=== PATIENT | female | born 1960 | race African-American/Black ===

== ENCOUNTER 2017-10-08 18:51 | Inpatient (IN) | payer OTHER ==
[2017-10-08 19:05] VITALS: BMI 23.0
--- NOTE | 2017-10-08 21:07 | HP ---
Admission [facility] - [facility] Chief Complaint: SEEKING REHAB SERVICES FOR CONT USE OF HEROIN, THC, TANMAY. Allergies/Adverse Reactions: Allergies Allergy/AdvReac Type Severity Reaction Status Date / Time haloperidol [From Haldol] Allergy Severe Swelling Verified 10/08/17 20:27 History of Present Illness: 57 Y.O FEMALE WITH LONG HX/O OPIOID DEPENDENCE HERE FOR REHAB SERVICES. THIS IS CLIENTS FIRST TIME HERE. SHE IS PRESENTLY ON METHADONE 135 MG LDM TODAY. 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 CLIENT IS A POOR HISTORIAN Exam Limitations: No Limitations - Ebola screening Have you traveled outside of the country in the last 21 days: No Have you had contact with anyone from an Ebola affected area: No Have you been sick,other than usual withdrawal symptoms: No Do you have a fever: No - Review of Systems Constitutional: No Symptoms Reported EENT: reports: Dental Problems (MISSING TEETH) Respiratory: reports: No Symptoms reported Cardiac: reports: No Symptoms Reported GI: reports: No Symptoms Reported : reports: No Symptoms Reported Musculoskeletal: reports: No Symptoms Reported Integumentary: reports: No Symptoms Reported Neuro: reports: No Symptoms reported Endocrine: reports: No Symptoms Reported Hematology: reports: No Symptoms Reported Psychiatric: reports: Anxious, Depressed Other Systems: Reviewed and Negative Patient History - Patient Medical History Hx Anemia: No Hx Asthma: No Hx Chronic Obstructive Pulmonary Disease (COPD): No Hx Cancer: No Hx Cardiac Disorders: No Hx Congestive Heart Failure: No Hx Hypertension: Yes (ON MEDS- NAME UNKNOWN) Hx Hypercholesterolemia: No Hx Pacemaker: No HX Cerebrovascular Accident: No Hx Seizures: No Hx Dementia: No Hx Diabetes: No Hx Gastrointestinal Disorders: No Hx Liver Disease: No Hx Genitourinary Disorders: No Hx Sexually Transmitted Disorders: No Hx Renal Disease (ESRD): No Hx Thyroid Disease: No Hx Human Immunodeficiency Virus (HIV): No Hx Hepatitis C: No Hx Depression: Yes (DENIES SI/HI) Hx Suicide Attempt: Yes (PILLS OVERDOSE 2YRS AGO) Hx Bipolar Disorder: No Hx Schizophrenia: Yes Other Medical History: PT DENIES - Patient Surgical History Past Surgical History: Yes Hx Neurologic Surgery: No Hx Cataract Extraction: No Hx Cardiac Surgery: No Hx Lung Surgery: No Hx Breast Surgery: No Hx Breast Biopsy: No Hx Abdominal Surgery: Yes (HERNIA REPAIR AT AGE 8) Hx Appendectomy: No Hx Cholecystectomy: No Hx Genitourinary Surgery: No Hx Section: No Hx Orthopedic Surgery: No Anesthesia Reaction: No - PPD History Previous Implant?: Yes Documented Results: Positive w/o proof Implanted On Prior [facility] Admission?: No PPD to be Administered?: No - Reproductive History Patient is a Female of Child Bearing Age (11 -55 yrs old): No Patient : No ([facility] [place] - Smoking Cessation Smoking history: Current every day smoker Have you smoked in the past 12 months: Yes Aproximately how many cigarettes per day: 20 Hx Chewing Tobacco Use: No Initiated information on smoking cessation: Yes 'Breaking Loose' booklet given: 10/08/17 - Substance & Tx. History Hx Alcohol Use: No Hx Substance Use: Yes Substance Use Type: Cocaine, Heroin, Marijuana, Opiates (METHADONE) Hx Substance Use Treatment: No (DOES NOT RECALL) - Substances Abused Heroin Route: Inhalation Frequency: Daily Amount used: 1BAG Age of first use: 19 Date of Last Use: 10/07/17 Crack Route: Smoking Frequency: Daily Amount used: 1BAG Age of first use: 19 Date of Last Use: 10/07/17 Family Disease History - Family Disease History Family History: Unable to Obtain Admission Physical Exam S - Vital Signs Vital Signs: Vital Signs - 24 hr 10/08/17 18:58 Temperature 97.6 F Pulse Rate 58 L Respiratory 16 Rate Blood Pressure 150/84 - Physical General Appearance: Yes: Thin, Irritable HEENTM: Yes: EOMI, Normocephalic, KRISTINA, Pharynx Normal, Other (POOR DENTITION, MISSING TEETH) Respiratory: Yes: Chest Non-Tender, Lungs Clear, Normal Breath Sounds, No Respiratory Distress, No Accessory Muscle Use Neck: Yes: No masses,lesions,Nodules, Supple, Trachea in good position Breast: Yes: Within Normal Limits Cardiology: Yes: Regular Rhythm, Regular Rate, S1, S2 Abdominal: Yes: Normal Bowel Sounds, Non Tender, Soft Genitourinary: Yes: Within Normal Limits Back: Yes: Normal Inspection Musculoskeletal: Yes: full range of Motion, Gait Steady Extremities: Yes: Normal Capillary Refill, Normal Range of Motion, Non-Tender, Tremors Neurological: Yes: coil connector II-XII NML intact, Fully Oriented, Alert, Motor Strength 5/5 Integumentary: Yes: Normal Color, Dry, Warm Lymphatic: Yes: Within Normal Limits - Diagnostic (1) Uncomplicated opioid dependence Current Visit: Yes Status: Chronic (2) Cannabis dependence, uncomplicated Current Visit: Yes Status: Chronic (3) Cocaine dependence, uncomplicated Current Visit: Yes Status: Chronic (4) Sedative, hypnotic or anxiolytic dependence, uncomplicated Current Visit: Yes Status: Chronic (5) Nicotine dependence Current Visit: Yes Status: Acute (6) Opioid dependence on agonist therapy Current Visit: Yes Status: Acute (7) HTN (hypertension) Current Visit: Yes Status: Chronic Qualifiers: Hypertension type: unspecified Qualified Code(s): I10 - Essential (primary ) hypertension Cleared for Admission [facility] - Detox or Rehab Detox Regimen/Protocol: Not Applicable Claeared for Rehab Admission: Yes [facility] Breath Alcohol Content Breath Alcohol Content: 0 Urine Pregancy Test - Result Urine Test Results: Negative- NO Line Present Urine Drug Screen - Results Drug Screen Negative: No Urine Drug Screen Results: THC-Marijuana, TANMAY-Cocaine, OPI-Opiates, MTD- Methadone Inpatient Rehab Admission - Initial Determination Are CD services needed?: Yes Free of communicable disease: Yes Not in need of hospitalization: Yes - Rehab Admission Criteria Previous failed treatment: Yes Poor recovery environment: Yes Comorbidities: Yes Lacks judgement: Yes Patient is meeting Inpatient Rehab admission criteria:: Yes
[2017-10-08] MEDS ORDERED: MAGNESIUM HYDROX 2400MG/30ML ORAL SUSPENSION 30 ML CUP PO PRN (21:14)
[2017-10-08] MEDS ORDERED: MENTHOL/PHENOL 1 EACH UD MM PRN (21:14)
[2017-10-08] MEDS ORDERED: NICOTINE POLACRILEX 4 MG GUM BC PRN (21:14)
[2017-10-08] MEDS ORDERED: ACETAMINOPHEN 325 MG TABLET (FP) PO PRN (21:14)
[2017-10-08] MEDS ORDERED: IBUPROFEN 400 MG TABLET (FP) PO PRN (21:14)
[2017-10-08] MEDS ORDERED: guaiFENesin/D-METHORPHAN HB 10 ML UNIT-DOSE CUPS PO PRN (21:14)
[2017-10-08] MEDS ORDERED: P-EPHED 60MG/TRIPROLIDI 2.5MG TABLET PO PRN (21:14)
[2017-10-08] MEDS ORDERED: MAGNESIUM CITRATE 300 ML BOTTLE PO PRN (21:14)
[2017-10-08] MEDS ORDERED: MAG HYDROX/AL HYDROX/SIMETH 30 ML UNIT-DOSE CUP PO PRN (21:14)
[2017-10-08] MEDS ORDERED: LOPERAMIDE HCL 2 MG CAPSULE PO PRN (21:14)
[2017-10-08] MEDS ORDERED: hydrOXYzine PAMOATE 50 MG CAPSULE (FP) PO PRN (21:14)
[2017-10-08] MEDS: THIAMINE HCL 100 MG TABLET (FP) PO SCH (23:10)
[2017-10-08 23:32] LABS: URINE APPEARANCE SLCLOUDY; URINE BILIRUBIN NEGATIVE (NEGATIVE); URINE BLOOD NEGATIVE (NEGATIVE); URINE COLOR DKYELLOW; URINE GLUCOSE (UA) NEGATIVE (NEGATIVE); URINE KETONE TRACE (NEGATIVE); URINE LEUK ESTERASE 1+ (NEGATIVE); URINE NITRITE NEGATIVE (NEGATIVE); URINE PROTEIN NEGATIVE (NEGATIVE)
[2017-10-08 23:34] LABS: EPI CELLS RARE /HPF (FEW); URINE HYALINE CAST 3 /lpf; URINE MUCUS MANY
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
[2017-10-09] MEDS ORDERED: METHADONE HCL 10 MG TABLET PO ONE (10:21)
[2017-10-09] MEDS ORDERED: METHADONE 120 MG, METHADONE 10 MG, METHADONE 5 MG PO ONE (10:33)
[2017-10-09] MEDS: PRENATAL VITAMINS W/ FOLIC ACID TABLET (FP) PO SCH (10:33)
[2017-10-09] MEDS: NICOTINE 21 MG/24 HOURS TOPICAL PATCH TD SCH (10:38)
[2017-10-09] MEDS ORDERED: METHADONE HCL 40 MG DISPERSABLE TABLET ONE (11:32)
[2017-10-09] MEDS ORDERED: METHADONE HCL 5 MG TABLET ONE (11:32)
[2017-10-09] MEDS ORDERED: METHADONE HCL 10 MG TABLET ONE (11:32)
[2017-10-09] MEDS: QUEtiapine FUMARATE 100 MG TABLET (FP) PO SCH ×2 (11:37→21:38)
[2017-10-09] MEDS: DIVALPROEX SODIUM 500 MG TABLET E.C. PO SCH (21:38)
[2017-10-09] MEDS: THIAMINE HCL 100 MG TABLET (FP) PO SCH (21:38)
[2017-10-10] MEDS ORDERED: METHADONE HCL 10 MG TABLET ONE (05:56)
[2017-10-10] MEDS ORDERED: METHADONE HCL 5 MG TABLET ONE (05:57)
[2017-10-10] MEDS ORDERED: METHADONE HCL 40 MG DISPERSABLE TABLET ONE (05:57)
[2017-10-10] MEDS ORDERED: METHADONE HCL 40 MG DISPERSABLE TABLET PO SCH (06:00)
[2017-10-10] MEDS: METHADONE 120 MG, METHADONE 10 MG, METHADONE 5 MG PO SCH (06:46)
[2017-10-10] MEDS: PRENATAL VITAMINS W/ FOLIC ACID TABLET (FP) PO SCH (10:17)
[2017-10-10] MEDS: QUEtiapine FUMARATE 100 MG TABLET (FP) PO SCH ×2 (10:17→21:30)
[2017-10-10] MEDS: NICOTINE 21 MG/24 HOURS TOPICAL PATCH TD SCH (10:17)
[2017-10-10] MEDS: THIAMINE HCL 100 MG TABLET (FP) PO SCH (21:30)
[2017-10-10] MEDS: DIVALPROEX SODIUM 500 MG TABLET E.C. PO SCH (21:31)
[2017-10-11] MEDS ORDERED: METHADONE HCL 5 MG TABLET ONE (03:12)
[2017-10-11] MEDS ORDERED: METHADONE HCL 10 MG TABLET ONE (03:12)
[2017-10-11] MEDS ORDERED: METHADONE HCL 40 MG DISPERSABLE TABLET ONE (03:12)
[2017-10-11] MEDS: METHADONE 120 MG, METHADONE 10 MG, METHADONE 5 MG PO SCH (06:19)
[2017-10-11] MEDS: PRENATAL VITAMINS W/ FOLIC ACID TABLET (FP) PO SCH (09:50)
[2017-10-11] MEDS: QUEtiapine FUMARATE 200 MG TABLET PO SCH ×2 (09:50→21:32)
[2017-10-11] MEDS: NICOTINE 21 MG/24 HOURS TOPICAL PATCH TD SCH (09:51)
--- NOTE | 2017-10-11 11:31 | PN ---
Psychiatric Progress Note Vital Signs: Vital Signs Period Temp Pulse Resp BP Sys/Pizarro Pulse Ox Last 24 Hr 99.2 F 63 16-18 179/83 Date of Session: 10/11/17 Chief Complaint:: Follow up HPI: Patient addressing Cocaine and Cannabis Dependence comorbid with Opoid dependence on Agonist Therapy, Nicotine Depenence, Schizoaffective Disorder substance-induced Mood Disorder and Substance-induced Sleep disorder ROS: HTN, PPD+ Current Medications: Active Medications Generic Name Dose Route Start Last Admin Trade Name Freq PRN Reason Stop Dose Admin Al Hydroxide/Mg Hydroxide 30 ml 10/08/17 21:14 Mylanta Oral Suspension - PO Q6H PRN DYSPEPSIA Divalproex Sodium 1,000 mg 10/09/17 22:00 10/10/17 21:31 Depakote - PO Not Given HS CARINA Eucalyptus/Menthol/Phenol/Sorbitol 1 each 10/08/17 21:14 Cepastat Lozenge - MM Q4H PRN SORE THROAT Ibuprofen 400 mg 10/08/17 21:14 10/11/17 06:22 Motrin - PO 400 mg Q6H PRN Administration SEVERE PAIN Loperamide HCl 4 mg 10/08/17 21:14 Imodium - PO Q6H PRN DIARRHEA Magnesium Citrate 300 ml 10/08/17 21:14 Citroma - PO Q48H PRN CONSTIPATION Magnesium Hydroxide 30 ml 10/08/17 21:14 Milk Of Magnesia - PO DAILY PRN CONSTIPATION Methadone HCl 120 mg/ 135 mg 10/10/17 06:00 10/11/17 06:19 Methadone HCl 10 mg/ Methadone PO 10/16/17 05:59 135 mg HCl 5 mg DAILY@0600 CARINA Administration Nicotine 21 mg 10/09/17 10:00 10/11/17 09:51 Nicoderm Patch - TD Not Given DAILY CARINA Nicotine Polacrilex 4 mg 10/08/17 21:14 Nicorette Gum - BC Q2H PRN NICOTINE REPLACEMENT RX Multivit/Folic Acid/Iron 1 tab 10/09/17 10:00 10/11/17 09:50 Vitamins (Sjr) - PO 1 tab DAILY CARINA Administration Pseudoephedrine/Triprolidine 1 combo 10/08/17 21:14 Actifed - PO TID PRN NASAL CONGESTION Quetiapine Fumarate 200 mg 10/11/17 10:00 10/11/17 09:50 Seroquel - PO 200 mg BID CARINA Administration Thiamine HCl 100 mg 10/08/17 22:00 10/10/17 21:30 Vitamin B1 - PO 100 mg HS CARINA Administration Medication(s) Change(s): Increase Seroquel doage to 200 mg po BID Current Side Effect: No Lab tests ordered: Yes Lab tests reviewed: Yes Provider note:: Patient prior to admission was maitained on Seroquel 200 mg po BID along with Depakote 1000 mg po HS. Told show card writer on admission 10/09/17 that she has been off these medications for a month. So she was started on a reduced dose of Seroquel (100 mg po BID) and Depakote 1000 mg po HS was resumed. Patient tolerated medication well so Seroquel is being increased to 200 mg po BID Total face to face time:: 25 Mental Status Exam - Mental Status Exam Alert and Oriented to: Time, Place, Person Cognitive Function: Fair Patient Appearance: Well Groomed Mood: Irritable Affect: Appropriate Patient Behavior: Uncooperative Speech Pattern: Clear (but poverty of speech) Voice Loudness: Normal Thought Process: Intact Thought Disorder: Not Present Hallucinations: Denies Suicidal Ideation: Denies Homicidal Ideation: Denies Insight/Judgement: Fair Sleep: Fair Appetite: Good Muscle strength/Tone: Normal Gait/Station: Normal Psychiatric Treatment Plan - Problem List (1) Cocaine dependence Current Visit: Yes (2) Cannabis dependence Current Visit: Yes (3) Opioid dependence on agonist therapy Current Visit: Yes (4) Nicotine dependence Current Visit: Yes (5) Schizoaffective disorder Current Visit: Yes (6) Substance induced mood disorder Current Visit: Yes (7) Substance-induced sleep disorder Current Visit: Yes (8) HTN (hypertension) Current Visit: Yes Qualifiers: Hypertension type: unspecified Qualified Code(s): I10 - Essential (primary ) hypertension (9) PPD positive Current Visit: Yes Initial treatment plan: 1) Discontinue Seroquel 100 mg po BID. 2) Start Seroquel 200 mg po BID. 3) Monitor progress
[2017-10-11 13:12] LABS: BASO % 0.5 % (0-2.0); EOS % 4.4 % (0-4.5); HEMATOCRIT 39.4 % (32.4-45.2); HEMOGLOBIN 12.3 GM/dL (10.7-15.3); LYMPH % 50.4 % (8-40); MCHC 31.2 g/dl (32.0-36.0); MEAN CELL VOLUME 86.3 fl (80-96); MEAN PLT VOLUME 9.2 fl (7.5-11.1); MONO % 7.8 % (3.8-10.2); NEUT % 36.9 % (42.8-82.8); PLATELET COUNT 210 K/MM3 (134-434); RBC 4.57 M/mm3 (3.60-5.2); RDW 13.7 % (11.6-15.6); WHITE BLOOD COUNT 5.3 K/mm3 (4.0-10.0)
[2017-10-11 13:21] LABS: ALBUMIN 3.3 g/dl (3.4-5.0); ALK PHOS 68 U/L (45-117); ANION GAP 3 (8-16); BILIRUBIN,TOTAL 0.1 mg/dL (0.2-1.0); BLOOD UREA NITROGEN 12 mg/dL (7-18); CALCIUM 8.1 mg/dL (8.5-10.1); CHLORIDE 107 mmol/L (98-107); CO2 32 mmol/L (21-32); CREATININE 0.8 mg/dL (0.55-1.02); GLUCOSE,RANDOM 72 mg/dL (74-106); POTASSIUM 4.1 mmol/L (3.5-5.1); SGOT/AST 8 U/L (15-37); SGPT/ALT 14 U/L (12-78); SODIUM 142 mmol/L (136-145); TOT PROT 7.1 g/dl (6.4-8.2)
--- NOTE | 2017-10-11 15:03 | PN ---
S Progress Note (SOAP) Subjective: c/o right eye redness and pain since this morning also c/o "walking into rm" Objective: 10/11/17 15:00 focused: HEENT: scleral cloudiness in right eye. with conjuctival erythema, no discharge or swelling, eomi, pinpoint pupils b/l, vision grossly intact in all quadrants. no temporal tenderness. Neuro: not oriented to place, oriented to month/year not date/president, missed 1 word in immediate recall, can't spell world backward, unable to recall 2 words in 5 minutes. lethargic, requiring constant stimulation to stay engaged. facial symmetry. walks with her eyes closed, gait rushed with small steps leaning forward, can walk straight without assistance. Assessment: 57 yr old woman on mmt, c/o red eye pain and appears sedated liekly due to polypharmacy. Plan: decrease and split methadone dose, 60mg bid from 135mg daily recommend re-evaluation of psych medications tobrex to right eye
[2017-10-11] MEDS: DIVALPROEX SODIUM 500 MG TABLET E.C. PO SCH (21:32)
[2017-10-11] MEDS: TOBRAMYCIN 0.3% OPHTH OINT 3.5 GM OD SCH (21:32)
[2017-10-11] MEDS: THIAMINE HCL 100 MG TABLET (FP) PO SCH (21:33)
[2017-10-11] MEDS ORDERED: METHADONE HCL 40 MG DISPERSABLE TABLET PO SCH (22:00)
[2017-10-12] MEDS: TOBRAMYCIN 0.3% OPHTH OINT 3.5 GM OD SCH ×3 (06:11→21:23)
[2017-10-12] MEDS: NICOTINE 21 MG/24 HOURS TOPICAL PATCH TD SCH (09:32)
[2017-10-12] MEDS: QUEtiapine FUMARATE 200 MG TABLET PO SCH ×2 (09:33→21:24)
[2017-10-12] MEDS: PRENATAL VITAMINS W/ FOLIC ACID TABLET (FP) PO SCH (09:33)
[2017-10-12] MEDS ORDERED: METHADONE HCL 40 MG DISPERSABLE TABLET ONE ×2 (09:53→20:00)
[2017-10-12] MEDS ORDERED: METHADONE HCL 10 MG TABLET ONE ×2 (09:53→19:59)
[2017-10-12] MEDS: METHADONE 40 MG, METHADONE 20 MG PO SCH ×2 (10:00→21:23)
[2017-10-12] MEDS: amLODIPine BESYLATE 10 MG TABLET (FP) PO SCH (11:57)
[2017-10-12] MEDS: LISINOPRIL 20 MG TABLET (FP) PO SCH (11:57)
[2017-10-12] MEDS: DIVALPROEX SODIUM 500 MG TABLET E.C. PO SCH (21:23)
[2017-10-12] MEDS: THIAMINE HCL 100 MG TABLET (FP) PO SCH (21:23)
[2017-10-13] MEDS: TOBRAMYCIN 0.3% OPHTH OINT 3.5 GM OD SCH ×3 (06:50→21:35)
[2017-10-13] MEDS ORDERED: METHADONE HCL 10 MG TABLET ONE ×2 (08:37→21:36)
[2017-10-13] MEDS ORDERED: METHADONE HCL 40 MG DISPERSABLE TABLET ONE ×2 (08:37→21:37)
[2017-10-13] MEDS: LISINOPRIL 20 MG TABLET (FP) PO SCH (09:42)
[2017-10-13] MEDS: amLODIPine BESYLATE 10 MG TABLET (FP) PO SCH (09:42)
[2017-10-13] MEDS: PRENATAL VITAMINS W/ FOLIC ACID TABLET (FP) PO SCH (09:42)
[2017-10-13] MEDS: METHADONE 40 MG, METHADONE 20 MG PO SCH ×2 (09:42→21:37)
[2017-10-13] MEDS: NICOTINE 21 MG/24 HOURS TOPICAL PATCH TD SCH (09:42)
[2017-10-13] MEDS: QUEtiapine FUMARATE 200 MG TABLET PO SCH (09:42)
[2017-10-13] MEDS: DIVALPROEX SODIUM 500 MG TABLET E.C. PO SCH (09:45)
[2017-10-13] MEDS ORDERED: PT OWN MED DRAWER 7, Y5N ONE (14:21)
--- NOTE | 2017-10-13 15:23 | PN ---
Psychiatric Progress Note Vital Signs: Vital Signs Period Temp Pulse Resp BP Sys/Pizarro Pulse Ox Last 24 Hr 98.4 F 58-61 16-18 141-155/71-80 Date of Session: 10/13/17 Chief Complaint:: Drowsiness HPI: Patient addressing Cocaine and Cannabis Dependence comorbid with Opoid dependence on Agonist Therapy, Nicotine Depenence, Schizoaffective Disorder ROS: HTN, PPD+ Current Medications: Active Medications Generic Name Dose Route Start Last Admin Trade Name Freq PRN Reason Stop Dose Admin Al Hydroxide/Mg Hydroxide 30 ml 10/08/17 21:14 Mylanta Oral Suspension - PO Q6H PRN DYSPEPSIA Amlodipine Besylate 10 mg 10/12/17 12:00 10/13/17 09:42 Norvasc - PO 10 mg DAILY CARINA Administration Divalproex Sodium 1,000 mg 10/09/17 22:00 10/12/17 21:23 Depakote - PO Not Given HS CARINA Eucalyptus/Menthol/Phenol/Sorbitol 1 each 10/08/17 21:14 Cepastat Lozenge - MM Q4H PRN SORE THROAT Ibuprofen 400 mg 10/08/17 21:14 10/11/17 06:22 Motrin - PO 400 mg Q6H PRN Administration SEVERE PAIN Lisinopril 20 mg 10/12/17 11:45 10/13/17 09:42 Prinivil PO 20 mg DAILY CARINA Administration Loperamide HCl 4 mg 10/08/17 21:14 Imodium - PO Q6H PRN DIARRHEA Magnesium Citrate 300 ml 10/08/17 21:14 Citroma - PO Q48H PRN CONSTIPATION Magnesium Hydroxide 30 ml 10/08/17 21:14 Milk Of Magnesia - PO DAILY PRN CONSTIPATION Methadone HCl 40 mg/ Methadone 60 mg 10/12/17 10:00 10/13/17 09:42 HCl 20 mg PO 60 mg BID CARINA Administration Nicotine 21 mg 10/09/17 10:00 10/13/17 09:42 Nicoderm Patch - TD Not Given DAILY CARINA Nicotine Polacrilex 4 mg 10/08/17 21:14 Nicorette Gum - BC Q2H PRN NICOTINE REPLACEMENT RX Multivit/Folic Acid/Iron 1 tab 10/09/17 10:00 10/13/17 09:42 Vitamins (Sjr) - PO 1 tab DAILY CARINA Administration Pseudoephedrine/Triprolidine 1 combo 10/08/17 21:14 Actifed - PO TID PRN NASAL CONGESTION Quetiapine Fumarate 200 mg 10/14/17 22:00 Seroquel - PO HS CARINA Thiamine HCl 100 mg 10/08/17 22:00 10/12/17 21:23 Vitamin B1 - PO 100 mg HS CARINA Administration Tobramycin Sulfate 1 applic 10/11/17 22:00 10/13/17 14:19 Tobrex Ophthalmic Ointment - OD 1 applic TID CARINA Administration Current Side Effect: No Lab tests ordered: Yes Lab tests reviewed: Yes Provider note:: Patient seen because she is observed of being sedated, drowsy, sleepy. She is currently on Seroquel 200 mg po BID along with methadone. Told by nursing staff that her methadone total daily dosage was consequently divided in twice a day. Seroquel will be reduced back to 200 mg/day given at bedtime starting tomorrow night since she got 200 mg this morning Total face to face time:: 25 Mental Status Exam - Mental Status Exam Alert and Oriented to: Time, Person Cognitive Function: Fair Patient Appearance: Well Groomed Mood: Hopeful, Euthymic Affect: Appropriate Patient Behavior: Sedated, Cooperative (superficially) Speech Pattern: Clear Voice Loudness: Normal Thought Process: Intact Thought Disorder: Not Present Hallucinations: Denies Suicidal Ideation: Denies Homicidal Ideation: Denies Insight/Judgement: Fair Sleep: Fair Appetite: Good Muscle strength/Tone: Normal Gait/Station: Normal Psychiatric Treatment Plan - Problem List (1) Cocaine dependence Current Visit: Yes (2) Cannabis dependence Current Visit: Yes (3) Opioid dependence on agonist therapy Current Visit: Yes (4) Nicotine dependence Current Visit: Yes (5) Schizoaffective disorder Current Visit: Yes (6) Substance induced mood disorder Current Visit: Yes (7) Substance-induced sleep disorder Current Visit: Yes (8) HTN (hypertension) Current Visit: Yes Qualifiers: Hypertension type: unspecified Qualified Code(s): I10 - Essential (primary ) hypertension (9) PPD positive Current Visit: Yes Initial treatment plan: 1) Discontinue Seroquel 200 mg po BID. 2) Start Seroquel 200 mg po HS at bedtime on Oct 14, 2017. 3) Monitor progress
[2017-10-13] MEDS: THIAMINE HCL 100 MG TABLET (FP) PO SCH (21:35)
[2017-10-14] MEDS: TOBRAMYCIN 0.3% OPHTH OINT 3.5 GM OD SCH ×3 (05:45→21:33)
[2017-10-14] MEDS ORDERED: METHADONE HCL 10 MG TABLET ONE ×2 (08:31→20:22)
[2017-10-14] MEDS ORDERED: METHADONE HCL 40 MG DISPERSABLE TABLET ONE ×2 (08:32→20:23)
[2017-10-14] MEDS: amLODIPine BESYLATE 10 MG TABLET (FP) PO SCH (10:07)
[2017-10-14] MEDS: LISINOPRIL 20 MG TABLET (FP) PO SCH (10:07)
[2017-10-14] MEDS: NICOTINE 21 MG/24 HOURS TOPICAL PATCH TD SCH (10:07)
[2017-10-14] MEDS: PRENATAL VITAMINS W/ FOLIC ACID TABLET (FP) PO SCH (10:07)
[2017-10-14] MEDS: METHADONE 40 MG, METHADONE 20 MG PO SCH ×2 (10:07→21:33)
[2017-10-14] MEDS: QUEtiapine FUMARATE 200 MG TABLET PO SCH (21:32)
[2017-10-14] MEDS: THIAMINE HCL 100 MG TABLET (FP) PO SCH (21:32)
[2017-10-14] MEDS: DIVALPROEX SODIUM 500 MG TABLET E.C. PO SCH (21:33)
[2017-10-15] MEDS: TOBRAMYCIN 0.3% OPHTH OINT 3.5 GM OD SCH ×3 (06:16→21:25)
[2017-10-15] MEDS ORDERED: METHADONE HCL 10 MG TABLET ONE ×2 (08:42→19:58)
[2017-10-15] MEDS ORDERED: METHADONE HCL 40 MG DISPERSABLE TABLET ONE ×2 (08:43→19:58)
[2017-10-15] MEDS: amLODIPine BESYLATE 10 MG TABLET (FP) PO SCH (09:43)
[2017-10-15] MEDS: LISINOPRIL 20 MG TABLET (FP) PO SCH (09:43)
[2017-10-15] MEDS: PRENATAL VITAMINS W/ FOLIC ACID TABLET (FP) PO SCH (09:43)
[2017-10-15] MEDS: METHADONE 40 MG, METHADONE 20 MG PO SCH ×2 (09:43→21:22)
[2017-10-15] MEDS: NICOTINE 21 MG/24 HOURS TOPICAL PATCH TD SCH (09:44)
[2017-10-15] MEDS ORDERED: guaiFENesin/D-METHORPHAN HB 10 ML UNIT-DOSE CUPS PO PRN (14:31)
--- NOTE | 2017-10-15 14:39 | PN ---
[facility] Progress Note (SOAP) Subjective: Patient seen for c/o productive cough of greenish phlegm x 1 week. She reports being a chronic cigarette smoker and reports sob due to anxiety. As per patient , she has been smoking since age 8 and has been smoking 1ppd. Objective: 10/15/17 14:35 Last Vital Signs Temp Pulse Resp BP Pulse Ox 98.1 F 58 L 16 161/79 10/15/17 09:30 10/15/17 09:30 10/15/17 06:44 10/15/17 09:30 Laboratory Tests 10/08/17 10/11/17 10/11/17 21:24 11:20 11:20 WBC RBC Hgb Hct MCV MCH MCHC RDW Plt Count MPV Neutrophils % Lymphocytes % Monocytes % Eosinophils % Basophils % Sodium 142 Potassium 4.1 Chloride 107 Carbon Dioxide 32 Anion Gap 3 L BUN 12 Creatinine 0.8 Creat Clearance w eGFR > 60 Random Glucose 72 L Calcium 8.1 L Total Bilirubin 0.1 L AST 8 L ALT 14 Alkaline Phosphatase 68 Ammonia Total Protein 7.1 Albumin 3.3 L Urine Color Dkyellow Urine Appearance Slcloudy Urine pH 5.0 Ur Specific [place] 1.031 Urine Protein Negative Urine Glucose (UA) Negative Urine Ketones Trace H Urine Blood Negative Urine Nitrite Negative Urine Bilirubin Negative Urine Urobilinogen 2.0 H Ur Leukocyte Esterase Negative Urine WBC (Auto) 3 Urine RBC (Auto) 5 Ur Epithelial Cells Rare Hyaline Casts 3 Urine Mucus Many RPR Titer Hepatitis C Antibody <0.1 HIV 1&2 Antibody Screen HIV P24 Antigen 10/11/17 10/11/17 10/11/17 11:20 11:20 11:20 WBC RBC Hgb Hct MCV MCH MCHC RDW Plt Count MPV Neutrophils % Lymphocytes % Monocytes % Eosinophils % Basophils % Sodium Potassium Chloride Carbon Dioxide Anion Gap BUN Creatinine Creat Clearance w eGFR Random Glucose Calcium Total Bilirubin AST ALT Alkaline Phosphatase Ammonia 35.12 H Total Protein Albumin Urine Color Urine Appearance Urine pH Ur Specific [place] Urine Protein Urine Glucose (UA) Urine Ketones Urine Blood Urine Nitrite Urine Bilirubin Urine Urobilinogen Ur Leukocyte Esterase Urine WBC (Auto) Urine RBC (Auto) Ur Epithelial Cells Hyaline Casts Urine Mucus RPR Titer Nonreactive Hepatitis C Antibody HIV 1&2 Antibody Screen Negative HIV P24 Antigen Negative 10/11/17 11:20 WBC 5.3 RBC 4.57 Hgb 12.3 Hct 39.4 MCV 86.3 MCH 27.0 MCHC 31.2 L RDW 13.7 Plt Count 210 MPV 9.2 Neutrophils % 36.9 L Lymphocytes % 50.4 H Monocytes % 7.8 Eosinophils % 4.4 Basophils % 0.5 Sodium Potassium Chloride Carbon Dioxide Anion Gap BUN Creatinine Creat Clearance w eGFR Random Glucose Calcium Total Bilirubin AST ALT Alkaline Phosphatase Ammonia Total Protein Albumin Urine Color Urine Appearance Urine pH Ur Specific [place] Urine Protein Urine Glucose (UA) Urine Ketones Urine Blood Urine Nitrite Urine Bilirubin Urine Urobilinogen Ur Leukocyte Esterase Urine WBC (Auto) Urine RBC (Auto) Ur Epithelial Cells Hyaline Casts Urine Mucus RPR Titer Hepatitis C Antibody HIV 1&2 Antibody Screen HIV P24 Antigen Labs noted Assessment: 10/15/17 14:36 Patient seen for acute cough Plan: Acute cough, productive: encouraged to drink lots of water, start robitussin DM q4hr prn, educated on importance of quitting nicotine use. B/P might be further elevated due to DM in robitussin, if this occurs, consider plain robitussin.
[2017-10-15] MEDS: THIAMINE HCL 100 MG TABLET (FP) PO SCH (21:23)
[2017-10-15] MEDS: DIVALPROEX SODIUM 500 MG TABLET E.C. PO SCH (21:23)
[2017-10-15] MEDS: QUEtiapine FUMARATE 200 MG TABLET PO SCH (21:23)
[2017-10-16] MEDS: TOBRAMYCIN 0.3% OPHTH OINT 3.5 GM OD SCH ×3 (05:30→21:10)
[2017-10-16] MEDS ORDERED: METHADONE HCL 10 MG TABLET ONE ×2 (08:42→20:23)
[2017-10-16] MEDS ORDERED: METHADONE HCL 40 MG DISPERSABLE TABLET ONE ×2 (08:43→20:23)
[2017-10-16] MEDS: PRENATAL VITAMINS W/ FOLIC ACID TABLET (FP) PO SCH (09:40)
[2017-10-16] MEDS: METHADONE 40 MG, METHADONE 20 MG PO SCH ×2 (09:40→21:08)
[2017-10-16] MEDS: LISINOPRIL 20 MG TABLET (FP) PO SCH (09:40)
[2017-10-16] MEDS: NICOTINE 21 MG/24 HOURS TOPICAL PATCH TD SCH (09:41)
[2017-10-16] MEDS: amLODIPine BESYLATE 10 MG TABLET (FP) PO SCH (09:41)
[2017-10-16] MEDS: LORATADINE 10 MG TABLET PO SCH (11:51)
--- NOTE | 2017-10-16 15:33 | PN ---
S Progress Note (SOAP) Subjective: Patient c/o redness of right eye. She is on tobramycin eye drop but eye remains red. She denies any pain, injury or trauma to her eye sight. She agrees to try claritin for allergy. Patient was agitated, irritable and tearful today for unknown reason Objective: 10/16/17 15:33 Last Vital Signs Temp Pulse Resp BP Pulse Ox 98.2 F 64 20 156/66 10/16/17 07:07 10/16/17 09:11 10/16/17 09:11 10/16/17 09:11 PE: Eyes: right eye with mild scleral redness, no drainage noted Assessment: 10/16/17 15:33 Patient seen for allergic rhinitis Plan: Allergic rhinitis: start claritin 10mg PO daily x 7 days (first dose today), continue tobramycin eyedrop, continue to monitor
[2017-10-16] MEDS: QUEtiapine FUMARATE 200 MG TABLET PO SCH (21:07)
[2017-10-16] MEDS: THIAMINE HCL 100 MG TABLET (FP) PO SCH (21:07)
[2017-10-16] MEDS: DIVALPROEX SODIUM 500 MG TABLET E.C. PO SCH (21:10)
[2017-10-17] MEDS: TOBRAMYCIN 0.3% OPHTH OINT 3.5 GM OD SCH ×3 (06:18→21:05)
[2017-10-17] MEDS ORDERED: METHADONE HCL 10 MG TABLET ONE ×2 (08:45→19:26)
[2017-10-17] MEDS ORDERED: METHADONE HCL 40 MG DISPERSABLE TABLET ONE ×2 (08:46→19:27)
[2017-10-17] MEDS: NICOTINE 21 MG/24 HOURS TOPICAL PATCH TD SCH (10:14)
[2017-10-17] MEDS: LORATADINE 10 MG TABLET PO SCH (10:14)
[2017-10-17] MEDS: PRENATAL VITAMINS W/ FOLIC ACID TABLET (FP) PO SCH (10:14)
[2017-10-17] MEDS: METHADONE 40 MG, METHADONE 20 MG PO SCH ×2 (10:14→21:03)
[2017-10-17] MEDS: LISINOPRIL 20 MG TABLET (FP) PO SCH (10:14)
[2017-10-17] MEDS: amLODIPine BESYLATE 10 MG TABLET (FP) PO SCH (10:15)
[2017-10-17] MEDS: QUEtiapine FUMARATE 200 MG TABLET PO SCH (21:03)
[2017-10-17] MEDS: DIVALPROEX SODIUM 500 MG TABLET E.C. PO SCH (21:03)
[2017-10-17] MEDS: THIAMINE HCL 100 MG TABLET (FP) PO SCH (21:03)
[2017-10-18] MEDS: TOBRAMYCIN 0.3% OPHTH OINT 3.5 GM OD SCH ×3 (05:52→21:20)
[2017-10-18] MEDS ORDERED: METHADONE HCL 40 MG DISPERSABLE TABLET ONE ×2 (08:51→19:32)
[2017-10-18] MEDS ORDERED: METHADONE HCL 10 MG TABLET ONE ×2 (08:51→19:31)
[2017-10-18] MEDS: METHADONE 40 MG, METHADONE 20 MG PO SCH ×2 (09:50→21:19)
[2017-10-18] MEDS: NICOTINE 21 MG/24 HOURS TOPICAL PATCH TD SCH (09:51)
[2017-10-18] MEDS: amLODIPine BESYLATE 10 MG TABLET (FP) PO SCH (09:51)
[2017-10-18] MEDS: PRENATAL VITAMINS W/ FOLIC ACID TABLET (FP) PO SCH (09:51)
[2017-10-18] MEDS: LISINOPRIL 20 MG TABLET (FP) PO SCH (09:51)
[2017-10-18] MEDS: LORATADINE 10 MG TABLET PO SCH (09:51)
[2017-10-18] MEDS: THIAMINE HCL 100 MG TABLET (FP) PO SCH (21:19)
[2017-10-18] MEDS: QUEtiapine FUMARATE 200 MG TABLET PO SCH (21:19)
[2017-10-18] MEDS: DIVALPROEX SODIUM 500 MG TABLET E.C. PO SCH (21:21)
[2017-10-19] MEDS: TOBRAMYCIN 0.3% OPHTH OINT 3.5 GM OD SCH ×3 (05:56→21:25)
[2017-10-19] MEDS ORDERED: METHADONE HCL 10 MG TABLET ONE ×2 (08:41→21:23)
[2017-10-19] MEDS ORDERED: METHADONE HCL 40 MG DISPERSABLE TABLET ONE ×2 (08:41→21:23)
[2017-10-19] MEDS: NICOTINE 21 MG/24 HOURS TOPICAL PATCH TD SCH (10:04)
[2017-10-19] MEDS: METHADONE 40 MG, METHADONE 20 MG PO SCH ×2 (10:04→21:24)
[2017-10-19] MEDS: LISINOPRIL 20 MG TABLET (FP) PO SCH (10:04)
[2017-10-19] MEDS: PRENATAL VITAMINS W/ FOLIC ACID TABLET (FP) PO SCH (10:04)
[2017-10-19] MEDS: LORATADINE 10 MG TABLET PO SCH (10:04)
[2017-10-19] MEDS: amLODIPine BESYLATE 10 MG TABLET (FP) PO SCH (10:04)
[2017-10-19] MEDS: QUEtiapine FUMARATE 200 MG TABLET PO SCH (21:24)
[2017-10-19] MEDS: THIAMINE HCL 100 MG TABLET (FP) PO SCH (21:25)
[2017-10-19] MEDS: DIVALPROEX SODIUM 500 MG TABLET E.C. PO SCH (21:25)
[2017-10-20] MEDS: TOBRAMYCIN 0.3% OPHTH OINT 3.5 GM OD SCH ×3 (05:58→21:03)
[2017-10-20] MEDS ORDERED: METHADONE HCL 10 MG TABLET ONE ×2 (08:51→19:33)
[2017-10-20] MEDS ORDERED: METHADONE HCL 40 MG DISPERSABLE TABLET ONE ×2 (08:51→19:33)
[2017-10-20] MEDS: amLODIPine BESYLATE 10 MG TABLET (FP) PO SCH (09:57)
[2017-10-20] MEDS: METHADONE 40 MG, METHADONE 20 MG PO SCH ×2 (09:57→21:03)
[2017-10-20] MEDS: PRENATAL VITAMINS W/ FOLIC ACID TABLET (FP) PO SCH (09:57)
[2017-10-20] MEDS: LISINOPRIL 20 MG TABLET (FP) PO SCH (09:57)
[2017-10-20] MEDS: LORATADINE 10 MG TABLET PO SCH (09:57)
[2017-10-20] MEDS: NICOTINE 21 MG/24 HOURS TOPICAL PATCH TD SCH (09:59)
[2017-10-20] MEDS: DIVALPROEX SODIUM 500 MG TABLET E.C. PO SCH (21:04)
[2017-10-20] MEDS: QUEtiapine FUMARATE 200 MG TABLET PO SCH (21:04)
[2017-10-20] MEDS: THIAMINE HCL 100 MG TABLET (FP) PO SCH (21:04)
[2017-10-21] MEDS: TOBRAMYCIN 0.3% OPHTH OINT 3.5 GM OD SCH (06:08)
[2017-10-21 06:46] VITALS: BP 155/78; PULSE 62; TEMP 98.4
--- NOTE | 2017-10-21 09:31 | PN ---
Psychiatric Progress Note Vital Signs: Vital Signs Period Temp Pulse Resp BP Sys/Pizarro Pulse Ox Last 24 Hr 98.4 F 60-62 16-20 150-155/73-78 Date of Session: 10/21/17 Chief Complaint:: Discharge Note HPI: Patient addressing Cocaine and Cannabis Dependence comorbid with Opoid Dependence on Agonist Therapy, Nicotine Dependence, Substance-induced Mood Disorder and Substance-induced Sleep Disorder ROS: HTN, PPD+ Current Medications: Active Medications Generic Name Dose Route Start Last Admin Trade Name Freq PRN Reason Stop Dose Admin Al Hydroxide/Mg Hydroxide 30 ml 10/08/17 21:14 Mylanta Oral Suspension - PO Q6H PRN DYSPEPSIA Amlodipine Besylate 10 mg 10/12/17 12:00 10/20/17 09:57 Norvasc - PO 10 mg DAILY CARINA Administration Divalproex Sodium 1,000 mg 10/09/17 22:00 10/20/17 21:04 Depakote - PO Not Given HS CARINA Eucalyptus/Menthol/Phenol/Sorbitol 1 each 10/08/17 21:14 Cepastat Lozenge - MM Q4H PRN SORE THROAT Guaifenesin 10 ml 10/15/17 14:31 Robitussin Dm - PO Q4H PRN COUGH Ibuprofen 400 mg 10/08/17 21:14 10/11/17 06:22 Motrin - PO 400 mg Q6H PRN Administration SEVERE PAIN Lisinopril 20 mg 10/12/17 11:45 10/20/17 09:57 Prinivil PO 20 mg DAILY CARINA Administration Loperamide HCl 4 mg 10/08/17 21:14 Imodium - PO Q6H PRN DIARRHEA Loratadine 10 mg 10/16/17 11:00 10/20/17 09:57 Claritin - PO 10/23/17 10:59 10 mg DAILY CARINA Administration Magnesium Citrate 300 ml 10/08/17 21:14 Citroma - PO Q48H PRN CONSTIPATION Magnesium Hydroxide 30 ml 10/08/17 21:14 Milk Of Magnesia - PO DAILY PRN CONSTIPATION Methadone HCl 120 mg 10/21/17 09:16 Dolophine - PO 10/21/17 09:17 ONCE ONE Nicotine 21 mg 10/09/17 10:00 10/20/17 09:59 Nicoderm Patch - TD Not Given DAILY CARINA Nicotine Polacrilex 4 mg 10/08/17 21:14 Nicorette Gum - BC Q2H PRN NICOTINE REPLACEMENT RX Multivit/Folic Acid/Iron 1 tab 10/09/17 10:00 10/20/17 09:57 Vitamins (Sjr) - PO 1 tab DAILY CARINA Administration Quetiapine Fumarate 200 mg 10/14/17 22:00 10/20/17 21:04 Seroquel - PO 200 mg HS CARINA Administration Thiamine HCl 100 mg 10/08/17 22:00 10/20/17 21:04 Vitamin B1 - PO 100 mg HS CARINA Administration Tobramycin Sulfate 1 applic 10/11/17 22:00 10/21/17 06:08 Tobrex Ophthalmic Ointment - OD 1 applic TID CARINA Administration Current Side Effect: No Lab tests ordered: Yes Lab tests reviewed: Yes Provider note:: Patient has completed this program today. She has met her treatment goals and will continue to address her issues in outpatient treatment at [facility]. Told senior technical writer that from her participation in this program, she has learned the importance of establishing a sober support network in order to maintain abstinence. She responded well to Seroquel 200 mg po HS and Depakote 1000 mg po HS. Scripts for 30 days supply of medications are electronically transmitted to [facility] at [address] [place] [address]. She is stable for discharge today Total face to face time:: 35 Mental Status Exam - Mental Status Exam Alert and Oriented to: Time, Place, Person Cognitive Function: Fair Patient Appearance: Well Groomed Mood: Hopeful, Euthymic Affect: Appropriate Patient Behavior: Cooperative Speech Pattern: Clear Voice Loudness: Normal Thought Process: Intact, Goal Oriented Thought Disorder: Not Present Hallucinations: Denies Suicidal Ideation: Denies Homicidal Ideation: Denies Insight/Judgement: Fair Sleep: Fair Appetite: Good Muscle strength/Tone: Normal Gait/Station: Normal Psychiatric Treatment Plan - Problem List (1) Cocaine dependence Current Visit: Yes (2) Cannabis dependence Current Visit: Yes (3) Opioid dependence on agonist therapy Current Visit: Yes (4) Nicotine dependence Current Visit: Yes (5) Schizoaffective disorder Current Visit: Yes (6) Substance induced mood disorder Current Visit: Yes (7) Substance-induced sleep disorder Current Visit: Yes (8) HTN (hypertension) Current Visit: Yes Qualifiers: Hypertension type: unspecified Qualified Code(s): I10 - Essential (primary ) hypertension (9) PPD positive Current Visit: Yes Initial treatment plan: Patient is discharged today and referrred to [facility] for outpatient treatment
[2017-10-21] MEDS: LISINOPRIL 20 MG TABLET (FP) PO SCH (09:35)
[2017-10-21] MEDS: amLODIPine BESYLATE 10 MG TABLET (FP) PO SCH (09:35)
[2017-10-21] MEDS: NICOTINE 21 MG/24 HOURS TOPICAL PATCH TD SCH (09:35)
[2017-10-21] MEDS: LORATADINE 10 MG TABLET PO SCH (09:35)
[2017-10-21] MEDS: PRENATAL VITAMINS W/ FOLIC ACID TABLET (FP) PO SCH (09:35)
[2017-10-21] MEDS ORDERED: METHADONE HCL 40 MG DISPERSABLE TABLET PO ONE (09:45)
== END 2017-10-21 09:45 | disposition home or self-care (01) | DRG 772 ==
LOC: YASAS 18:51 → Y6N 20:23 → Y3W 21:04
PROVIDERS: ADMIT Psychiatry & Neurology Psychiatry; ATTEND Psychiatry & Neurology Psychiatry
PROC: HZ42ZZZ Group Counseling for Substance Abuse Treatment, Cognitive-Behavioral (ICD-10-PCS; principal; 2017-10-08)
DX: F11.20 Opioid dependence, uncomplicated (principal); F13.230 Sedative, hypnotic or anxiolytic dependence with withdrawal, uncomplicated; F14.20 Cocaine dependence, uncomplicated; F12.20 Cannabis dependence, uncomplicated; F17.210 Nicotine dependence, cigarettes, uncomplicated; F25.9 Schizoaffective disorder, unspecified; F19.24 Other psychoactive substance dependence with psychoactive substance-induced mood disorder; F19.282 Other psychoactive substance dependence with psychoactive substance-induced sleep disorder; I10 Essential (primary) hypertension; R76.11 Nonspecific reaction to tuberculin skin test without active tuberculosis; Z91.5 Personal history of self-harm
CPT/HCPCS: 36415; 71020-TC; 80053; 81003; 81015; 82140; 85025; 86593; 86803; 87389

== ENCOUNTER 2021-07-03 13:39 | Inpatient (IN) | payer OTHER ==
[2021-07-03 17:26] VITALS: BMI 24.3
[2021-07-03] MEDS ORDERED: IBUPROFEN 400 MG TABLET (FP) PO PRN (18:07)
[2021-07-03] MEDS ORDERED: MAG HYDROX/AL HYDROX/SIMETH 30 ML UNIT-DOSE CUP PO PRN (18:07)
[2021-07-03] MEDS ORDERED: MENTHOL/PHENOL 1 EACH UD MM PRN (18:07)
[2021-07-03] MEDS ORDERED: ONDANSETRON *ODT* 4 MG TABLET SL PRN (18:07)
[2021-07-03] MEDS ORDERED: MAGNESIUM CITRATE 300 ML BOTTLE PO PRN (18:07)
[2021-07-03] MEDS ORDERED: NICOTINE 10 MG CARTRIDGE (INHALER) IH PRN (18:07)
[2021-07-03] MEDS ORDERED: MAGNESIUM HYDROX 2400MG/30ML ORAL SUSPENSION 30 ML CUP PO PRN (18:07)
[2021-07-03] MEDS ORDERED: BISMUTH SUBSALICYLATE 524 MG/30 ML PO PRN (18:07)
[2021-07-03] MEDS ORDERED: ACETAMINOPHEN 325 MG TABLET (FP) PO PRN ×2 (18:07)
[2021-07-03] MEDS ORDERED: QUEtiapine FUMARATE 300 MG TABLET PO ONE (22:00)
[2021-07-03] MEDS: hydrOXYzine PAMOATE 25 MG CAPSULE (FP) PO SCH (22:14)
[2021-07-03] MEDS: MELATONIN 5 MG TABLETS PO SCH (22:14)
[2021-07-03] MEDS: PRENATAL VITAMINS W/ FOLIC ACID TABLET (FP) PO SCH (22:15)
[2021-07-03] MEDS: LISINOPRIL 20 MG TABLET PO SCH (22:16)
[2021-07-03] MEDS: THIAMINE HCL 100 MG TABLET (FP) PO SCH (22:16)
[2021-07-04] MEDS: hydrOXYzine PAMOATE 25 MG CAPSULE (FP) PO SCH (07:04)
[2021-07-04] MEDS ORDERED: diazePAM 5 MG TABLET PO PRN (11:30)
[2021-07-04] MEDS: amLODIPine BESYLATE 10 MG TABLET (FP) PO SCH (11:44)
[2021-07-04] MEDS: PRENATAL VITAMINS W/ FOLIC ACID TABLET (FP) PO SCH (11:44)
[2021-07-04] MEDS ORDERED: cloNIDine HCL 0.1 MG TABLET PO ONE (11:45)
[2021-07-04] MEDS: LISINOPRIL 20 MG TABLET PO SCH (11:45)
[2021-07-04] MEDS ORDERED: methaDONE HCL 10 MG TABLET (FOR DETOX USE ONLY) PO ONE (11:45)
[2021-07-04 15:08] LABS: HEMOGLOBIN 13.2 GM/dL (10.7-15.3); MCH 29.1 pg (25.7-33.7); MCHC 33.1 g/dl (32.0-36.0); MEAN CELL VOLUME 87.8 fl (80-96); MEAN PLT VOLUME 9.3 fl (7.5-11.1); PLATELET COUNT 206 10^3/uL (134-434); RBC 4.55 M/mm3 (3.60-5.2); RDW 14.8 % (11.6-15.6); WHITE BLOOD COUNT 4.4 K/mm3 (4.0-10.0)
[2021-07-04 15:25] LABS: CALCIUM 9.4 mg/dL (8.5-10.1)
[2021-07-04 15:26] LABS: BLOOD UREA NITROGEN 20.5 mg/dL (7-18)
[2021-07-04 15:29] LABS: CREATININE 1.5 mg/dL (0.55-1.3)
[2021-07-04 15:30] LABS: BILIRUBIN,TOTAL 0.5 mg/dL (0.2-1); TOT PROT 7.7 g/dl (6.4-8.2)
[2021-07-04] MEDS ORDERED: QUEtiapine FUMARATE 200 MG TABLET PO SCH (22:00)
[2021-07-04] MEDS ORDERED: QUEtiapine FUMARATE 100 MG TABLET (FP) PO SCH (22:00)
[2021-07-04] MEDS: MELATONIN 5 MG TABLETS PO SCH (22:29)
[2021-07-04] MEDS: THIAMINE HCL 100 MG TABLET (FP) PO SCH (22:29)
[2021-07-04] MEDS: cloNIDine HCL 0.1 MG TABLET PO PRN (22:29)
[2021-07-04] MEDS: QUEtiapine FUMARATE 100 MG TABLET (FP) PO SCH (22:29)
[2021-07-05] MEDS ORDERED: methaDONE HCL 10 MG TABLET (FOR DETOX USE ONLY) ONE (09:10)
[2021-07-05] MEDS ORDERED: QUEtiapine FUMARATE 100 MG TABLET (FP) PO SCH ×2 (10:00)
[2021-07-05] MEDS: LISINOPRIL 20 MG TABLET PO SCH (10:27)
[2021-07-05] MEDS: amLODIPine BESYLATE 10 MG TABLET (FP) PO SCH (10:28)
[2021-07-05] MEDS: PRENATAL VITAMINS W/ FOLIC ACID TABLET (FP) PO SCH (10:28)
[2021-07-05] MEDS: QUEtiapine FUMARATE 200 MG TABLET PO SCH (10:40)
[2021-07-05] MEDS: cloNIDine HCL 0.1 MG TABLET PO PRN (11:53)
[2021-07-05] MEDS: QUEtiapine FUMARATE 100 MG TABLET (FP) PO SCH (22:02)
[2021-07-05] MEDS: THIAMINE HCL 100 MG TABLET (FP) PO SCH (22:02)
[2021-07-05] MEDS: MELATONIN 5 MG TABLETS PO SCH (22:02)
[2021-07-06] MEDS ORDERED: methaDONE HCL 10 MG TABLET (FOR DETOX USE ONLY) PO ONE (10:00)
[2021-07-06] MEDS: LISINOPRIL 20 MG TABLET PO SCH (10:35)
[2021-07-06] MEDS: amLODIPine BESYLATE 10 MG TABLET (FP) PO SCH (10:35)
[2021-07-06] MEDS: QUEtiapine FUMARATE 200 MG TABLET PO SCH (10:35)
[2021-07-06] MEDS: PRENATAL VITAMINS W/ FOLIC ACID TABLET (FP) PO SCH (10:35)
[2021-07-06 11:07] LABS: ALBUMIN 3.4 g/dl (3.4-5.0); BLOOD UREA NITROGEN 22.8 mg/dL (7-18)
[2021-07-06 11:08] LABS: CALCIUM 9.1 mg/dL (8.5-10.1)
[2021-07-06 11:09] LABS: PHOSPHOROUS 3.2 mg/dL (2.5-4.9)
[2021-07-06 11:10] LABS: CREATININE 1.2 mg/dL (0.55-1.3)
[2021-07-06] MEDS: QUEtiapine FUMARATE 100 MG TABLET (FP) PO SCH (21:45)
[2021-07-06] MEDS: MELATONIN 5 MG TABLETS PO SCH (21:45)
[2021-07-06] MEDS: THIAMINE HCL 100 MG TABLET (FP) PO SCH (21:45)
[2021-07-07] MEDS ORDERED: methaDONE HCL 10 MG TABLET (FOR DETOX USE ONLY) ONE (09:05)
[2021-07-07] MEDS: PRENATAL VITAMINS W/ FOLIC ACID TABLET (FP) PO SCH (10:14)
[2021-07-07] MEDS: amLODIPine BESYLATE 10 MG TABLET (FP) PO SCH (10:14)
[2021-07-07] MEDS: QUEtiapine FUMARATE 200 MG TABLET PO SCH (10:14)
[2021-07-07] MEDS: LISINOPRIL 20 MG TABLET PO SCH (10:14)
[2021-07-07] MEDS: QUEtiapine FUMARATE 100 MG TABLET (FP) PO SCH (22:22)
[2021-07-07] MEDS: THIAMINE HCL 100 MG TABLET (FP) PO SCH (22:22)
[2021-07-07] MEDS: hydrOXYzine PAMOATE 25 MG CAPSULE (FP) PO PRN (22:22)
[2021-07-07] MEDS: METHOCARBAMOL 500 MG TABLET PO PRN (22:22)
[2021-07-07] MEDS: MELATONIN 5 MG TABLETS PO SCH (22:22)
[2021-07-08] MEDS: amLODIPine BESYLATE 10 MG TABLET (FP) PO SCH ×2 (07:48→12:04)
[2021-07-08] MEDS ORDERED: methaDONE HCL 10 MG TABLET (FOR DETOX USE ONLY) PO ONE (10:00)
[2021-07-08] MEDS: QUEtiapine FUMARATE 200 MG TABLET PO SCH (10:15)
[2021-07-08] MEDS: hydrOXYzine PAMOATE 25 MG CAPSULE (FP) PO PRN ×2 (10:16→22:50)
[2021-07-08] MEDS: PRENATAL VITAMINS W/ FOLIC ACID TABLET (FP) PO SCH (10:19)
[2021-07-08] MEDS: LISINOPRIL 20 MG TABLET PO SCH (11:36)
[2021-07-08] MEDS: MELATONIN 5 MG TABLETS PO SCH (22:48)
[2021-07-08] MEDS: THIAMINE HCL 100 MG TABLET (FP) PO SCH (22:48)
[2021-07-08] MEDS: QUEtiapine FUMARATE 100 MG TABLET (FP) PO SCH (22:50)
[2021-07-08] MEDS: METHOCARBAMOL 500 MG TABLET PO PRN (22:51)
[2021-07-09] MEDS ORDERED: LISINOPRIL 20 MG TABLET PO SCH (07:00)
[2021-07-09] MEDS ORDERED: amLODIPine BESYLATE 10 MG TABLET (FP) PO SCH (07:00)
[2021-07-09 10:15] VITALS: BP 184/90; PULSE 81; TEMP 96.8
[2021-07-09] MEDS: QUEtiapine FUMARATE 200 MG TABLET PO SCH (11:14)
[2021-07-09] MEDS: PRENATAL VITAMINS W/ FOLIC ACID TABLET (FP) PO SCH (11:14)
== END 2021-07-09 09:33 | disposition home or self-care (01) | DRG 773 ==
LOC: YASAS 13:39 → UNDOADMIN 17:55 → Y3N 17:55
PROVIDERS: ADMIT Allergy & Immunology; ATTEND Allergy & Immunology
PROC: HZ2ZZZZ Detoxification Services for Substance Abuse Treatment (ICD-10-PCS; principal; 2021-07-03)
DX: F11.23 Opioid dependence with withdrawal (principal); F14.20 Cocaine dependence, uncomplicated; F12.20 Cannabis dependence, uncomplicated; F17.210 Nicotine dependence, cigarettes, uncomplicated; F25.9 Schizoaffective disorder, unspecified; F31.9 Bipolar disorder, unspecified; F19.24 Other psychoactive substance dependence with psychoactive substance-induced mood disorder; G47.00 Insomnia, unspecified; I10 Essential (primary) hypertension; R79.89 Other specified abnormal findings of blood chemistry; Z87.820 Personal history of traumatic brain injury; Z86.11 Personal history of tuberculosis; Z91.5 Personal history of self-harm; Z88.8 Allergy status to other drugs, medicaments and biological substances
CPT/HCPCS: 36415; 71046-TC-FY; 80053; 80069; 85027; 86780; C9803; J0735; U0003; U0005